=== PATIENT | female | born 1970 | race Caucasian/White ===

== ENCOUNTER 2025-03-29 11:39 | Emergency (ER) | payer OTHER, SELFPAY ==
--- NOTE | 2025-03-29 15:54 | ED.SKININJ ---
HPI-Injury
General
Chief Complaint: Bite
Source: patient
Time Seen by Provider: 03/29/25 14:59
History of Present Illness-Injury
Initial Injury comments:
54-year-old female who was with her horse today, tried to move horses head to the side which irritated her, and horse bit her. She suffered injury to the left index finger, palmar aspect. No other injury reported. Reports is fully immunized.
Patient is fully immunized. She describes laceration at left index finger, denies numbness, tingling, or other complaints. Bleeding well-controlled.
Past History
Past History
ED Past Medical History: Other (Kidney stones)
Social History
Tobacco: Non-smoker
Alcohol: None
Drug: None
Phy Exam
Physical Exam
Physical Exam:
GENERAL: Alert , in no apparent distress
EYE: pupils equal and reactive
NECK: Supple
ENT: o/p clr, mmm.
CARDIAC: Regular rate and rhythm .
LUNGS: Clear breath sounds bilaterally, no acute respiratory distress, no wheezes/rales/rhonchi
ABDOMEN: Soft, without focal tenderness,
NEUROLOGICAL: Alert and oriented, no focal neuro deficits
SKIN: Warm and dry, L index finger with approx 4 cm t shpaed lac volar aspect about PIP area. Examined through from, no tendon/fjoin involvement noted, strength intact, from intact, sens intact .
MUSCULOSKELETAL: No edema, well perfused.
PSYCH: Normal and appropriate interaction.
Course
Orders/Labs/Results
Orders:
Orders
03/29/25
Finger(s)/Thumb 2 View Lt [CR Finger(s)/thumb Min 2 Vw Lt] Urgent
Comment:
Reason For Exam: bite
Indicate Which Finger:: Index Finger
03/29/25 16:28
Amoxicillin 875 mg/Clav 125 mg [Augmentin 875 mg/125 mg] 1 tablet PO NOW STA
Procedures
Laceration Closure
Left Finger:
Status of Wound: clean
Size of Wound in cm: 4
Description of Wound Edges: ragged
Preparation: cleaned with saline
Anesthesia: 1% Lidocaine
Revision/Debridement: routine- no revision
Wound exploration: explored to base- no FB and no tendon involvement
Type of Closure: single layer closure
Skin Closure Material: 4-0 nylon
Number of sutures: 10
*Pulse Oximetry
Patient hypoxic: no
*Critical Care Note
Total Time (30-74mins, 75-104mins- exclusive of procedures): Not Applicable
Update Note
Update Note:
Patient presents to the Emergency Department with ____horse bite
Number and Complexity of Problems Addressed at the Encounter
� Chronic conditions affecting care:
� Acute Exacerbation and/or Progression of Chronic Illness:
� Differential Diagnosis includes: But not limited to rabies exposure, tendon injury, laceration, tetanus exposure, etc. etc.
Amount and/or Complexity of Data to be Reviewed and Analyzed
� I performed an independent evaluation of and my interpretation is:
EKG:
CT:
Xrays:Soft tissue swelling with small foci of subcutaneous gas adjacent to the proximal interphalangeal joint of the index finger which is likely sequelae of known right. There is no evidence of acute osseous abnormality.--PT
GIVEN COPY OF REPORT AND RECOMMENDATION FOR F/U
Laboratory Studies:
Other:
� Review of other/old records reveals:
� Clinical information was obtained by an independent historian:
� Prescriptions/Medications Considered but not given:
� Further testing considered but not performed:
Risk of Complications and/or Morbidity or Mortality of Patient Management
� Social determinants of health affecting care:
� Discussion with other providers (PCP, Hospitalists, Consultants, etc):
� Escalation of care including admission/observation vs risk of discharge considered:
ED Attending Note
-
Portions of this chart may have been created with voice recognition software.� Occasional wrong word or��sound alike� substitutions may have occurred due to the inherent limitations of voice recognition software.
Discharge Plan
Departure
Patient Disposition: Home (Routine Discharge)
Date of Disposition: 03/29/25
Time of Disposition: 16:24
Patient with high blood pressure during this ER visit?: Yes
Condition: Good
Discharge Problem:
Bitten by horse
Instructions: Animal Bites (DC), BLOOD PRESSURE, Laceration
Prescriptions:
New
amoxicillin-pot clavulanate 875-125 mg tablet
1 tab PO BID Qty: 10 0RF
Referrals:
Kita Donovan DO [Family Provider, Family Practice]
Activity Restrictions/Additional Instructions:
YOUR SUTURES SHOULD BE REMOVED IN APPROX 10 DAYS. IF YOU DEVELOP REDNESS/WARMTH/REDNESS/PAIN/DRAINAGE/FEVER, NUMBNESS, OR OTHER WORRISOME SIGNS, GO TO THE ER IMMEDIATELY!
Interventions
Interventions:
*Risk Screen - Suicide Last Done: 03/29/25 11:42
*Neglect/Abuse Screening Last Done: 03/29/25 11:42
ED-Skin Assessment Last Done: 03/29/25 14:33
Discharge Date and Time
Print Language: BELARUSIAN
[2025-03-29] MEDS: AUGMENTIN 875 MG/125 MG 1 TABLET PO (16:39)
[2025-03-29 16:45] VITALS: BP 134/56
== END 2025-03-29 16:55 | disposition home or self-care (01) ==
LOC: EMR 11:39
PROVIDERS: EMERGENCY PHYSICIAN Emergency Medicine; FAMILY PHYSICIAN Family Medicine
DX: S61.211A Laceration without foreign body of left index finger without damage to nail, initial encounter (principal); W55.11XA Bitten by horse, initial encounter; Z87.442 Personal history of urinary calculi
CPT/HCPCS: 99283; 73140